=== PATIENT | male | born 1980 | race Native Hawaiian/Other Pacific Islander ===

== ENCOUNTER 2017-01-27 12:54 | Emergency (ER) | payer BC ==
[~2017-01-27] VITALS: Ht 185.4 cm; Wt 121.1 kg
== END 2017-01-27 18:53 | disposition home or self-care (01) ==
LOC: ED 12:54
DX: S39.012A Strain of muscle, fascia and tendon of lower back, initial encounter (principal); X58.XXXA Exposure to other specified factors, initial encounter; Y93.89 Activity, other specified; Y92.89 Other specified places as the place of occurrence of the external cause; Y99.8 Other external cause status
CPT/HCPCS: 99281

== ENCOUNTER 2017-02-22 18:49 | Emergency (ER) | payer BC ==
[~2017-02-22] VITALS: Ht 185.4 cm; Wt 121.1 kg
== END 2017-02-22 21:09 | disposition home or self-care (01) ==
LOC: ED 18:49
DX: M54.5 Low back pain (principal)
CPT/HCPCS: 96372; 99282; J2360

== ENCOUNTER 2017-03-23 19:03 | Emergency (ER) | payer BC ==
[~2017-03-23] VITALS: Ht 185.4 cm; Wt 121.1 kg
== END 2017-03-23 20:12 | disposition home or self-care (01) ==
LOC: ED 19:03
DX: S96.911A Strain of unspecified muscle and tendon at ankle and foot level, right foot, initial encounter (principal); X50.1XXA Overexertion from prolonged static or awkward postures, initial encounter; Y92.098 Other place in other non-institutional residence as the place of occurrence of the external cause
CPT/HCPCS: 99282